=== PATIENT | female | born 2000 | race African-American/Black ===

== ENCOUNTER 2022-12-03 12:22 | Emergency (ER) | payer BC ==
[~2022-12-03] VITALS: Ht 157.5 cm; Wt 61.2 kg
[2022-12-03 12:51] VITALS: BP 111/59
--- NOTE | 2022-12-03 12:51 | NUR ---
sent from rehab for chest xray and medical clearance. + quantiferon test
[2022-12-03] MEDS ORDERED: PENICILLIN G BENZATHINE 2.4 MMU/4 ML ML IM ONE ×2 (13:30→13:42)
--- NOTE | 2022-12-03 13:50 | NUR ---
Bicillin given to pt IM on R Glute
--- NOTE | 2022-12-03 15:50 | NUR ---
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
--- NOTE | 2022-12-03 16:23 | NUR ---
[facility], THEY WILL BE HERE IN 10-15 MINUTES TO PICK HER UP.
--- NOTE | 2022-12-03 16:23 | NUR ---
Xray results returned negative. MD perkins
--- NOTE | 2022-12-03 16:28 | NUR ---
Patient discharged to home in stable condition. Written and verbal after care instructions given. Patient verbalizes understanding of instruction.
== END 2022-12-03 16:40 | disposition home or self-care (01) ==
LOC: ER 12:35
DX: A53.0 Latent syphilis, unspecified as early or late (principal)
CPT/HCPCS: 99283; 71046; 96372; J0558